=== PATIENT | male | born 1955 | race Caucasian/White ===

== ENCOUNTER → 2024-10-26 | Outpatient (CLI) | payer MEDICARE, SELFPAY ==
--- NOTE | 2024-10-26 | XR_ITS ---
Examination: Knee, right , 3 views Technique: Knee AP, lateral, oblique 3 views Date and time of exam: October 26, 2024 1212 hours INDICATIONS: Knee pain months. FINDINGS: Moderate narrowing medial joint space right knee Moderate osteoarthritis patellofemoral joint Mild to moderate osteoarthritis lateral joint space No fracture IMPRESSION: Mild to moderate tricompartment osteoarthritis
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
== END | disposition home or self-care (01) ==
LOC: CDIM 10:53
PROVIDERS: PCP Family Medicine; Referring Provider Orthopaedic Surgery; Visit Provider Orthopaedic Surgery
DX: M25.861 Other specified joint disorders, right knee (principal); M17.11 Unilateral primary osteoarthritis, right knee; S89.91XS Unspecified injury of right lower leg, sequela; V89.2XXS Person injured in unspecified motor-vehicle accident, traffic, sequela
CPT/HCPCS: 73560; 73562; 73564; 73565

== ENCOUNTER → 2025-01-09 | Outpatient (CLI) | payer MEDICARE, SELFPAY ==
[2025-01-09 16:09] LABS: Thyroid Stimulating Hormone 1.10 uIU/mL (0.55-4.78)
[2025-01-17 06:50] LABS: ANA Screen, IFA POSITIVE (NEGATIVE); ANA Titer 1:80 titer
== END | disposition home or self-care (01) ==
LOC: COPL 15:02
PROVIDERS: PCP Family Medicine; Referring Provider Specialist; Visit Provider Specialist
DX: E78.9 Disorder of lipoprotein metabolism, unspecified (principal)
CPT/HCPCS: 36415; 84443; 86038

== ENCOUNTER 2025-03-14 07:40 | Day surgery (SDC) | payer MEDICARE, SELFPAY ==
[2025-03-14] VITALS (13 sets, daily range): BP systolic 123–170; BP diastolic 78–104; PULSE 54–72; RESP 12–21; TEMP 36.7–36.8; O2SAT 95–100; BMI 30.2
[2025-03-14] MEDS: BENZOCAINE 20% (Hurricaine) SPRAY 1 DOSE TOP (10:07)
[2025-03-14] MEDS: SODIUM CHLORIDE 0.9% 500 ML 500 ML 20 ML IV (10:07)
[2025-03-14] MEDS: fentaNYL CIT INJ 50 mCg/ML AMP 2ML (ASD USE ONLY) IVP (10:25)
[2025-03-14] MEDS: MIDAZOLAM INJ 1 MG/ML VIAL 2 ML (ASD USE ONLY) 2 MG IVP (10:30)
[2025-03-14] MEDS: MEPERIDINE INJ 25 MG/ML VIAL (ASD USE ONLY) 50 MG IVP (10:30)
== END 2025-03-14 11:20 | disposition home or self-care (01) ==
PROVIDERS: PCP Orthopaedic Surgery; Referring Provider Specialist; Visit Provider Specialist
PROC: (CPT 43239; principal; 2025-03-14 08:30)
PROC: 0DBE8ZX Excision of Large Intestine, Via Natural or Artificial Opening Endoscopic, Diagnostic (ICD-10-PCS; CPT 45380; 2025-03-14 08:30)
DX: Z12.11 Encounter for screening for malignant neoplasm of colon (principal); D12.3 Benign neoplasm of transverse colon; K64.1 Second degree hemorrhoids; K57.30 Diverticulosis of large intestine without perforation or abscess without bleeding; K29.50 Unspecified chronic gastritis without bleeding; K22.2 Esophageal obstruction; K20.90 Esophagitis, unspecified without bleeding; K31.7 Polyp of stomach and duodenum
CPT/HCPCS: 45385; 43248; 43239; A4649; C1769; J1200; J2175; J2250; J3010; J7999; A9270